=== PATIENT | male | born 1960 | race Caucasian/White ===

== ENCOUNTER 2016-12-19 13:11 | Emergency (ER) | payer OTHER ==
[2016-12-19 13:23] VITALS: BP 132/74
--- NOTE | 2016-12-19 15:44 | UC ---
Lower Extremity/Ankle HPI - HPI Summary HPI Summary: LEFT LOWER LEG PAIN SWELLING AND REDNESS, BEGAN TODAY. HISTORY OF VERICOSE VEINS BILATERAL LEGS. NO HISTORY OF DVT. NO HISTORY OF PE. CALF PAIN AND TENDERNESS TO DAY WELL. - History of Current Complaint Hx Obtained From: Patient Onset/Duration: Gradual Onset, Lasting Hours, Still Present Severity Initially: Moderate Severity Currently: Moderate Pain Intensity: 0 Pain Scale Used: 0-10 Numeric Aggravating Factor(s): Standing, Ambulation Alleviating Factor(s): Rest, Elevation Able to Bear Weight: Yes - Risk Factors Gout Risk Factors: Age Over 40, Male DVT Risk Factors: Negative Septic Arthritis Risk Factor: Negative <Raudel Thomas - Last Filed: 12/19/16 15:38> <Raudel Morocho - Last Filed: 12/19/16 19:12> - History of Current Complaint Chief Complaint: [place] Stated Complaint: LEFT LEG SKIN CONCERN Time Seen by Provider: 12/19/16 14:34 - Allergies/Home Medications Allergies/Adverse Reactions: Allergies Allergy/AdvReac Type Severity Reaction Status Date / Time No Known Allergies Allergy Verified 12/19/16 13:23 Home Medications: Home Medications Gabapentin CAP(*) [Neurontin 100 mg CAP(*)] 200 mg PO TID 12/19/16 [History Confirmed 12/19/16] metFORMIN* [Glucophage 500 MG TAB *] 500 mg PO BID 12/19/16 [History Confirmed 12/19/16] PMH/Surg Hx/FS Hx/Imm Hx Previously Healthy: Yes - Surgical History Surgical History: Yes Surgery Procedure, Year, and Place: knees - Family History Known Family History: Positive: Hypertension, Blood Disorder - FATHER LEUKEMIA - Social History Occupation: Employed Full-time Lives: With Family Alcohol Use: None Alcohol Amount: states quit 9 yrs ago Substance Use Type: None Smoking Status (MU): Never Smoked Tobacco Household Exposure Type: Cigarettes <Raudel Thomas - Last Filed: 12/19/16 15:38> Review of Systems Constitutional: Negative Skin: Rash - ERYTHEMA LEFT CALF Eyes: Negative ENT: Negative Respiratory: Negative Cardiovascular: Negative Gastrointestinal: Negative Genitourinary: Negative Motor: Negative Neurovascular: Negative Musculoskeletal: Arthralgia, Edema - LEFT LOWER LEG, Myalgia, Other: - LEFT POSITIVE HOMANS Neurological: Negative Psychological: Negative All Other Systems Reviewed And Are Negative: Yes <Raudel Thomas - Last Filed: 12/19/16 15:38> Physical Exam Triage Information Reviewed: Yes Appearance: Well-Appearing, No Pain Distress, Well-Nourished Vital Signs: Initial Vital Signs Temp 97.8 F 12/19/16 13:20 Pulse 98 12/19/16 13:20 Resp 16 12/19/16 13:20 BP 132/74 12/19/16 13:20 Pulse Ox 97 12/19/16 13:20 Vital Signs Reviewed: Yes Eye Exam: Normal ENT Exam: Normal ENT: Positive: Normal ENT inspection Dental Exam: Normal Neck exam: Normal Neck: Positive: Supple, Nontender, No Lymphadenopathy Respiratory Exam: Normal Respiratory: Positive: Chest non-tender, Lungs clear, Normal breath sounds, No respiratory distress Cardiovascular Exam: Normal Cardiovascular: Positive: RRR, No Murmur, Pulses Normal Abdominal Exam: Normal Musculoskeletal Exam: Normal Musculoskeletal: Positive: Strength Intact, ROM Intact Neurological Exam: Normal Psychological Exam: Normal Skin Exam: Normal Skin: Positive: Other - ERYTHEMA LEFT CALF <Raudel Thomas - Last Filed: 12/19/16 15:38> Vital Signs: Initial Vital Signs Temp 97.8 F 12/19/16 13:20 Pulse 98 12/19/16 13:20 Resp 16 12/19/16 13:20 BP 132/74 12/19/16 13:20 Pulse Ox 97 12/19/16 13:20 <Raudel Morocho - Last Filed: 12/19/16 19:12> Re-Evaluation - Re-Evaluation First Eval Re-Evaluation Time: 15:00 Change: Unchanged - Patient interviewed examined and agree that transfer to [facility] is indicated. <Raudel Morocho - Last Filed: 12/19/16 19:12> Lower Extremity Course/Dx - Differential Dx/Diagnosis Differential Diagnosis/HQI/PQRI: Fracture (Closed), Sprain, Strain Provider Diagnoses: LEG PAIN; R/O DVT - Physician Notifications Discussed Patient Care With: Talita Dietrich Time Discussed With Above Provider: 14:50 Instructed by Provider To: MD Will See In ED <Raudel Thomas - Last Filed: 12/19/16 15:38> Discharge <Raudel Thomas - Last Filed: 12/19/16 15:38> <Raudel Morocho - Last Filed: 12/19/16 19:12> - Discharge Plan Condition: Stable Disposition: TRANS HIGHER LVL OF CARE FAC Patient Education Materials: Leg Pain (ED) Referrals: ULISES Taveras [Primary Care Provider] - Additional Instructions: PATIENT REFERRED TO [facility] ED
== END 2016-12-19 15:08 | disposition short-term general hospital (02) ==
LOC: UCCORT 13:11
DX: M79.662 Pain in left lower leg (principal); Z77.22 Contact with and (suspected) exposure to environmental tobacco smoke (acute) (chronic)
CPT/HCPCS: 99211; G0463

== ENCOUNTER 2019-04-06 08:57 | Emergency (ER) | payer OTHER ==
[2019-04-06 09:23] VITALS: BP 164/92
--- NOTE | 2019-04-06 10:23 | ED ---
Lower Extremity - HPI Summary HPI Summary: 58 yr old male with the complaint of left foot redness, and delayed wound healing. The patient had surgery on the left foot a couple of months ago by Dr Madrid. He is a diabetic. He had a tendon proceedure on the 3rd toe extensor per the patient. The patient states he has gone to Dr Madrid and told him his foot is sore and red and that he feels the wound should be entirely closed by now. The patient has not been on antibiotics. No redness or streaking up the foot or leg. No fever or chills. No other complaints. - History of Current Complaint Chief Complaint: UCLowerExtremity Stated Complaint: L FOOT COMP Time Seen by Provider: 04/06/19 09:52 Pain Intensity: 2 - Allergies/Home Medications Allergies/Adverse Reactions: Allergies Allergy/AdvReac Type Severity Reaction Status Date / Time No Known Allergies Allergy Verified 04/06/19 09:14 PMH/Surg Hx/FS Hx/Imm Hx Cardiovascular History: Reports: Hx Hypertension Respiratory History: Reports: Hx Chronic Obstructive Pulmonary Disease (COPD) - emphysemia - Surgical History Surgery Procedure, Year, and Place: knees x3. foot Infectious Disease History: No Infectious Disease History: Denies: Traveled Outside the [place] in Last 30 Days - Family History Known Family History: Positive: Hypertension, Blood Disorder - FATHER LEUKEMIA - Social History Alcohol Use: None Alcohol Amount: states quit 9 yrs ago Substance Use Type: Reports: None Smoking Status (MU): Never Smoked Tobacco Review of Systems Constitutional: Negative Positive: Other - left foot cellulitis All Other Systems Reviewed And Are Negative: Yes Physical Exam Triage Information Reviewed: Yes Vital Signs On Initial Exam: Initial Vitals Temp Pulse Resp BP Pulse Ox 98.2 F 89 17 164/92 97 04/06/19 09:15 04/06/19 09:15 04/06/19 09:15 04/06/19 09:15 04/06/19 09:15 Vital Signs Reviewed: Yes Appearance: Positive: Well-Appearing, No Pain Distress Head/Face: Positive: Normal Head/Face Inspection Eyes: Positive: EOMI ENT: Positive: Normal ENT inspection Respiratory/Lung Sounds: Positive: Clear to Auscultation Cardiovascular: Positive: Pulses are Symmetrical in both Upper and Lower Extremities Abdomen Description: Negative: Distended Musculoskeletal: Positive: Other - there is cellulitis to the dorsum of the foot. No fluctuance, no drainage. He has ROM to the toes without any pain. No streaking or redness up the foot or leg. The redness is limited to the distal foot just proximal to the MP joints. He has a very small skin defect about 3 mm that is still not closed post op. No black color or gangrene appearance. No foul smell. Neurological: Positive: Sensory/Motor Intact, Alert, Oriented to Person Place, Time, CN Intact II-III Psychiatric: Positive: Normal Diagnostics - Vital Signs Vital Signs Temp Pulse Resp BP Pulse Ox 04/06/19 09:15 98.2 F 89 17 164/92 97 - Laboratory Lab Statement: Any lab studies that have been ordered have been reviewed, and results considered in the medical decision making process. Lower Extremity Course/Dx - Course Course Of Treatment: 58 yr old with cellulitis to the left foot post op a couple of months. Bactrim DS prescribed. he is to follow up with his primary and podiatry for BP and foot reevaluation as soon as possible in the next 3 -5 days. - Diagnoses Provider Diagnoses: Hypertension, Cellulitis of left foot Discharge ED - Sign-Out/Discharge Documenting (check all that apply): Patient Departure All imaging exams completed and their final reports reviewed: No Studies - Discharge Plan Condition: Good Disposition: HOME Prescriptions: Sulfamethox/Trimethoprim DS* [Bactrim DS 800/160 TAB*] 1 tab PO BID #20 tab Patient Education Materials: Cellulitis (ED), Foot Care for People with Diabetes (ED), Diabetic Foot Ulcers (ED), Hypertension (ED) Referrals: Jackie Jeronimo MD [Primary Care Provider] - 1 Day Andre Madrid DPM [Doctor of Podiatric Medicine] - 1 Day - Billing Disposition and Condition Condition: GOOD Disposition: Home
== END 2019-04-06 10:18 | disposition home or self-care (01) ==
LOC: UCCORT 08:57
DX: L03.116 Cellulitis of left lower limb (principal); I10 Essential (primary) hypertension; J43.9 Emphysema, unspecified; E11.9 Type 2 diabetes mellitus without complications
CPT/HCPCS: 99212; G0463